=== PATIENT | female | born 1960 | race Caucasian/White ===

== ENCOUNTER 2022-06-16 04:28 | Emergency (ER) | payer MEDICARE, OTHER ==
--- NOTE | 2022-06-16 04:47 | NUR ---
Pt not in waiting room.
== END 2022-06-16 04:53 | disposition left against medical advice (07) ==
LOC: ER 04:40
DX: Z53.21 Procedure and treatment not carried out due to patient leaving prior to being seen by health care provider (principal)

== ENCOUNTER 2024-09-22 23:25 | Emergency (ER) | payer OTHER ==
[~2024-09-22] VITALS: Ht 162.6 cm; Wt 59.0 kg
[2024-09-22 23:40] VITALS: O2SAT 98
== END 2024-09-22 23:55 | disposition left against medical advice (07) ==
LOC: ER 23:30
DX: R07.89 Other chest pain (principal); Z53.21 Procedure and treatment not carried out due to patient leaving prior to being seen by health care provider
CPT/HCPCS: A4606; A4663